=== PATIENT | female | born 1995 | race African-American/Black ===

== ENCOUNTER 2024-12-03 15:34 | Inpatient (IN) | payer OTHER, SELFPAY ==
[~2024-12-03] VITALS: Ht 165.1 cm; Wt 50.0 kg
[2024-12-03 15:48] VITALS: PULSE 191; RESP 20; O2SAT 99
--- NOTE | 2024-12-03 15:51 | ECG ---
[facility] Test Date: 2024-12-03 Test Time: 15:41:23 Pat Name: RAISA VAZQUEZ Department: [facility] ED Patient ID: [id number] Room: Gender: F Tin Cutter: ABIGAIL : 1995 Requested By: RAYA SIMMONS Order Number: [id number] Reading MD: Lukas Rossi Measurements Intervals [place] Rate: 171 P: 0 VA: 0 QRS: -11 QRSD: 84 T: 52 QT: 268 QTc: 452 Interpretive Statements Sinus tachycardia RSR' in V1 or V2, right VCD or RVH Electronically Signed On 12-03-2024 17:03:13 PDT by Lukas Rossi Please click the below link to view image of tracing.
[2024-12-03] MEDS: SODIUM CHLORIDE 0.9% 500 ML IV ONE (15:55)
[2024-12-03] MEDS: ADENOSINE 6 MG/2 ML INJ IV ONE ×2 (15:56→16:07)
--- NOTE | 2024-12-03 16:15 | ED.PDOC ---
HPI Comments This is a 29-year-old female with no significant past medical history came to the hospital due to palpitation 30 minutes before coming to the hospital. Per patient, she was driving while she suddenly developed palpitation. She also reporting of mild shortness of breaths and nausea. She denies fever, chest pain, headache, blurry vision, or any bowel/bladder habit changes. Upon ER arrival, EKGs SVT with no significant ST or T-wave changes with heart rate at 170s. Patient was given 6 mg of adenosine, subsequently rhythm converted to sinus rhythm. Surgical history: Hysterectomy (due to severe bleeding) Home meds: Does not take any medicine Social history: Denies smoking, or any other drug use Chief Complaint: Palpitations Time Seen by MD: 15:37 Reviewed Notes: Nurses Notes Allergies: Coded Allergies: NO KNOWN ALLERGIES (Unverified , 12/03/24) Information Source: Patient Past Medical History PAST MEDICAL HISTORY: Denies Surgical History: Denies all surgeries ANSWERING SERVICE AGENT History: No Pertinent ANSWERING SERVICE AGENT History Constitutional: denies: chills, diaphoresis, fatigue, fever, malaise, sweats, weakness, others EENTM: denies: blurred vision, double vision, ear bleeding, ear discharge, ear drainage, ear pain, ear ringing, eye pain, eye redness, hearing loss, mouth pain, mouth swelling, nasal discharge, nose bleeding, nose congestion, nose pain, photophobia, tearing, throat pain, throat swelling, voice changes, others Respiratory: denies: cough, hemoptysis, orthopnea, SOB at rest, shortness of breath, SOB with excertion, stridor, wheezing, others Cardiovascular: reports: palpitations; denies: chest pain, dizzy spells, diaphoresis, Dyspnea on exertion, edema, irregular heart beat, left arm pain, lightheadedness, PND, syncope, others Gastrointestinal: reports: nausea; denies: abdomen distended, abdominal pain, blood streaked bowels, constipated, diarrhea, dysphagia, difficulty swallowing, hematemesis, melena, poor appetite, poor fluid intake, rectal bleeding, rectal pain, vomiting, others Genitourinary: denies: abnormal vagina bleeding, burning, dyspareunia, dysuria, flank pain, frequency, hematuria, incontinence, pain, , vagina discharge, urgency, others Musculoskeletal: denies: back pain, gout, joint pain, joint swelling, muscle pain, muscle stiffness, neck pain, others Integumetry: denies: bruises, change in color, change in hair/nails, dryness, laceration, lesions, lumps, rash, wounds, others Allergic/Immunocompromised: denies: Difficulty Healing, Frequent Infections, Hives, Itching, others Hematologic/Lymphatic: denies: anemia, blood clots, easy bleeding, easy bruising, swollen glands, others Endocrine: denies: excessive hunger, excessive sweating, excessive thirst, excessive urination, flushing, intolerance to cold, intolerance to heat, u nexplained weight gain, unexplained weight loss, others Psychiatric: denies: anxiety, bipolar disorder, depression, hopeless, panic disorder, schizophrenia, sleepless, suicidal, others Physical Exam General Appearance: No Apparent Distress, Normal HEENT: Normal ENT Inspection, Pharynx Normal, TMs Normal Neck: Full Range of Motion, Non-Tender, Normal, Normal Inspection Respiratory: Chest Non-Tender, Lungs Clear, No Accessory Muscle Use, No Respiratory Distress, Normal Breath Sounds Cardiovascular: No Edema, No JVD, No Murmur, No Gallop, Normal Peripheral Pulses, Regular Rate/Rhythm Breast Exam: Deferred Gastrointestinal: No Organomegaly, Non Tender, No Pulsatile Mass, Normal Bowel Sounds, Soft Genitalia: Deferred Pelvic: Deferred Rectal: Deferred Extremities: No calf tenderness, Normal capillary refill, Normal inspection, Normal range of motion, Non-tender, No pedal edema Musculoskeletal : Apperance: Normal Neurologic: Alert, bread wrapper operator II-XII nml as Tested, No Motor Deficits, Normal Affect, Normal Mood, No Sensory Deficits Cerebellar Function: Normal Reflexes: Normal Skin: Dry, Normal Color, Warm Lymphatic: No Adenopathy EKG EKG : Comments SVT with heart rate at 170, no significant ST or T-wave changes Was a procedure done? Was a procedure done?: No CP Differential Dx Differential Diagnosis: Angina, Other (SVT) X-Ray, Labs, Meds, VS Vital Signs Date Time Temp Pulse Resp B/P (MAP) Pulse Ox O2 Delivery O2 Flow Rate FiO2 12/03/24 16:03 110 12/03/24 15:41 171 12/03/24 15:40 176 18 145/90 100 Lab Test 12/03/24 16:42 Range/Units White Blood Count 2.8 L 4.4-10.8 10^3/uL Red Blood Count 4.58 4.0-5.20 10^6/uL Hemoglobin 14.8 12.2-16.2 g/dL Hematocrit 43.4 36.0-46.0 % Mean Corpuscular Volume 94.9 80.0-100.0 fL Mean Corpuscular Hemoglobin 32.4 H 28.0-32.0 pg Mean Corpuscular Hemoglobin Concent 34.1 32.0-36.0 g/dL Red Cell Distribution Width 12.8 11.8-14.3 % Platelet Count 317 140-450 10^3/uL Mean Platelet Volume 8.1 6.9-10.8 fL Neutrophils (%) (Auto) 54.3 37.0-80.0 % Lymphocytes (%) (Auto) 34.9 10.0-50.0 % Monocytes (%) (Auto) 9.1 0.0-12.0 % Eosinophils (%) (Auto) 0.9 0.0-7.0 % Basophils (%) (Auto) 0.8 0.0-2.0 % Neutrophils # (Auto) 1.5 L 1.6-8.6 10 ^3/uL Lymphocytes # (Auto) 1.0 0.4-5.4 10 ^3/uL Monocytes # (Auto) 0.3 0-1.3 10 ^3/uL Eosinophils # (Auto) 0 0-0.8 10 ^3/uL Basophils # (Auto) 0 0-0.2 10 ^3/uL Nucleated Red Blood Cells 0.1 % Sodium Level Pending Potassium Level Pending Chloride Level Pending Carbon Dioxide Level Pending Anion Gap Pending Blood Urea Nitrogen Pending Creatinine Pending Glomerular Filtration Rate Calc Pending BUN/Creatinine Ratio Pending Serum Glucose Pending Calcium Level Pending Total Bilirubin Pending Aspartate Amino Transferase (AST) Pending Alanine Aminotransferase (ALT) Pending Alkaline Phosphatase Pending Troponin I High Sensitivity Pending Total Protein Pending Albumin Pending Thyroid Stimulating Hormone (TSH) Pending Plasma/Serum Blood Alcohol Pending Current Medications Medications (Trade) Dose Ordered Sig/Luis Route Start Time Stop Time Status Last Admin Sodium Chloride 500 ml @ 500 mls/hr Q1H ONCE IV 12/03/24 15:45 12/03/24 16:44 DC 12/03/24 15:55 Adenosine (Adenosine) 6 mg ONCE ONCE IV 12/03/24 16:15 12/03/24 16:16 DC 12/03/24 15:56 Time of 1ST Reevaluation: 17:09 Reevaluation 1ST: Improved Patient Education/Counseling: Diagnosis, Treatment, Prognosis, Need For Follow Up Family Education/Counseling: No Family Present Comments Patient came to the hospital due to palpitation. EKGs shows SVT with a heart rate at 170s Blood patient was normal. Due to SVT, vagal maneuver performed but rhythm did not provided. The patient was given 6 mg of adenosine, rhythm converted to sinus rhythm. Patient was given metoprolol 25 mg Patient will be admitted in hospital for further management and workup. SEPSIS Sepsis Screen Physician Orders Electrocardigram (12/03/24 15:49) Electrocardigram (12/03/24 16:49) Comprehensive Metabolic Panel (12/03/24 15:40) Drug Screen (12/03/24 15:40) Blood Alcohol (12/03/24 15:40) Thyroid Stimulating Hormone (12/03/24 15:40) Troponin-I Hs (12/03/24 15:40) Vital Signs Date Time Temp Pulse Resp B/P (MAP) Pulse Ox O2 Delivery O2 Flow Rate FiO2 12/03/24 16:03 110 12/03/24 15:41 171 12/03/24 15:40 176 18 145/90 100 Laboratory Tests Test 12/03/24 16:42 White Blood Count 2.8 10^3/uL (4.4-10.8) L Medications Medications Dose Ordered Sig/Luis Route Start Time Stop Time Status Last Admin Dose Admin Adenosine 6 mg ONCE ONCE IV 12/03/24 16:15 12/03/24 16:16 DC 12/03/24 15:56 Sodium Chloride 500 ml @ 500 mls/hr Q1H ONCE IV 12/03/24 15:45 12/03/24 16:44 DC 12/03/24 15:55 Departure 1 Departure Time of Disposition: 17:11 Impression: Primary Impression: Supraventricular tachycardia Disposition: 09 ADMITTED INPATIENT Admit to: Tele Condition: Guarded Critical Care Note Critical Care Time?: Yes (55 min-critical care time only) Stability Stability form required: Yes Heart Score Heart Score: Heart Score Response (Comments) Value History N/A 0 EKG Normal 0 Age <45 0 Risk Factors No known risk factors 0 Troponin N/A 0 Total 0 RAYA SIMMONS Dec 03, 2024 16:15
[2024-12-03 16:51] LABS: Hematocrit 43.4 % (36.0-46.0); Mean Corpuscular Volume 94.9 fL (80.0-100.0)
[2024-12-03 16:57] LABS: Hemoglobin 14.8 g/dL (12.2-16.2); Mean Corpuscular Hemoglobin 32.4 pg (28.0-32.0); Nucleated Red Blood Cells % 0.1 %
--- NOTE | 2024-12-03 17:05 | ECG ---
[facility] Test Date: 2024-12-03 Test Time: 16:03:21 Pat Name: RAISA VAZQUEZ Department: Room: [address] [place] [address] Gender: F Safety And Security Officer: : 1995 Requested By: RAYA SIMMONS Order Number: [id number] Reading MD: Lukas Rossi Measurements Intervals [place] Rate: 110 P: 56 MA: 141 QRS: 8 QRSD: 96 T: 39 QT: 330 QTc: 447 Interpretive Statements Sinus tachycardia Electronically Signed On 12-04-2024 16:05:27 PDT by Lukas Rossi Please click the below link to view image of tracing.
[2024-12-03 17:08] LABS: Alanine Aminotransferase 20 U/L (7-40); Albumin 4.7 g/dL (3.2-4.8); Alkaline Phosphatase 66 U/L (46-116); Anion Gap 9 (5-15); BUN/Creatinine Ratio 16.4 (10.0-20.0); Blood Urea Nitrogen 12 mg/dL (9-23); Calcium 9.5 mg/dL (8.7-10.4); Carbon Dioxide 24 mmol/L (20-31); Glucose 88 mg/dL (74-106); Potassium 4.2 mmol/L (3.5-5.1); Sodium 144 mmol/L (136-145); Total Protein 7.7 g/dL (5.7-8.2)
[2024-12-03 17:09] LABS: Bilirubin, Total 0.8 mg/dL (0.2-1.0)
[2024-12-03 17:10] LABS: Chloride 111 mmol/L (98-107)
[2024-12-03] MEDS: METOPROLOL TARTRATE 25 MG TAB PO ONE (17:58)
[2024-12-03 19:30] VITALS: PULSE 80; O2SAT 98
[2024-12-03] MEDS ORDERED: ONDANSETRON HCL 4 MG/2 ML VIAL IV PRN (19:30)
[2024-12-03] MEDS ORDERED: MORPHINE SULFATE INJ 2 MG/ml SYRG IV PRN (19:30)
[2024-12-03] MEDS ORDERED: NITROGLYCERIN 0.4 MG SL TAB SL PRN (19:30)
[2024-12-03] MEDS ORDERED: TEMAZEPAM 15 MG CAP PO PRN (19:30)
[2024-12-03] MEDS ORDERED: ACETAMINOPHEN 325 MG TAB PO PRN (19:30)
--- NOTE | 2024-12-03 20:12 | DVH ---
CHEST RADIOGRAPH Indication: Shortness breath Technique: 1 view Comparison: None FINDINGS: Lines and Tubes: External leads and defibrillator pads. Lungs/Pleura: No focal consolidation, pleural effusion or pneumothorax. Cardiomediastinum: Unremarkable. Other: No acute osseous abnormality. IMPRESSION: 1. No acute cardiopulmonary abnormality.
[2024-12-03] MEDS: METOPROLOL TARTRATE 25 MG TAB PO SCH (22:02)
--- NOTE | 2024-12-03 22:38 | DVHHP2 ---
History of Present Illness Reason for Visit: Palpitations History of Present Illness 29-year-old female presents for evaluation of palpitations. Patient reports developing palpitations while driving. She states having similar episodes in the past which would subside on their own. She drove herself to the emergency department and she was noted to be in SVT on arrival. She converted to normal sinus rhythm after one dose of adenosine 6 mg. Past Medical History Denies Past Surgical History Denies Family History Noncontributory Smoke: No ALCOHOL: none Drugs: None Lives: with Family Review of Systems Review of Systems Review of systems are currently negative otherwise addressed in HPI. Allergies: Coded Allergies: NO KNOWN ALLERGIES (Unverified , 12/03/24) Medications Current Medications Medications Dose Ordered Sig/Luis Route Start Time Stop Time Status Last Admin Dose Admin Metoprolol Tartrate 12.5 mg BID PO 12/03/24 22:00 12/03/24 22:02 12.5 MG Temazepam 15 mg QHSP PRN PO 12/03/24 19:30 Ondansetron HCl 4 mg Q4HP PRN IV 12/03/24 19:30 Acetaminophen 650 mg Q6HP PRN PO 12/03/24 19:30 Nitroglycerin 0.4 mg Q5MINP PRN SL 12/03/24 19:30 Morphine Sulfate 2 mg Q30M PRN IV 12/03/24 19:30 Exam Vital Signs Vital Signs Date Time Temp Pulse Resp B/P (MAP) Pulse Ox O2 Delivery O2 Flow Rate FiO2 12/03/24 22:02 84 119/70 12/03/24 21:00 23 97 12/03/24 19:30 98.7 98.7 12/03/24 15:48 Room Air* 0 21 Exam Gen: 29-year-old female in mild distress Skin: Warm, dry, normal color and texture, no rash. HEENT: Normocephalic atraumatic, mucous membranes moist and pink. Neck: Cervical and supraclavicular nodes normal without enlargement, trachea is midline, thyroid gland is normal without masses. Pulmonary: Clear to auscultation and percussion bilaterally. Cardiac: Regular rate and rhythm. No murmur Abdomen: Soft, nontender, nondistended, bowel sounds present all 4 quadrants, no guarding, no rigidity, no organomegaly. Extremities: No cyanosis, clubbing, no edema Neuro: Cranial nerves II through XII grossly intact, normal affect and speech, no focal motor deficits. Labs/Xrays ORDERING PHYSICIAN: JOSEPH COLON PROCEDURE(s): CXR1 - CHEST XRAY 1 VIEW REASON: Shortness breath ORDER NUMBER(s): [id number], ACCESSION NUMBER(s): [id number] CHEST RADIOGRAPH Indication: Shortness breath Technique: 1 view Comparison: None FINDINGS: Lines and Tubes: External leads and defibrillator pads. Lungs/Pleura: No focal consolidation, pleural effusion or pneumothorax. Cardiomediastinum: Unremarkable. Other: No acute osseous abnormality. IMPRESSION: 1. No acute cardiopulmonary abnormality. Labs Test 12/03/24 21:17 12/03/24 16:42 Range/Units White Blood Count 2.8 L 4.4-10.8 10^3/uL Red Blood Count 4.58 4.0-5.20 10^6/uL Hemoglobin 14.8 12.2-16.2 g/dL Hematocrit 43.4 36.0-46.0 % Mean Corpuscular Volume 94.9 80.0-100.0 fL Mean Corpuscular Hemoglobin 32.4 H 28.0-32.0 pg Mean Corpuscular Hemoglobin Concent 34.1 32.0-36.0 g/dL Red Cell Distribution Width 12.8 11.8-14.3 % Platelet Count 317 140-450 10^3/uL Mean Platelet Volume 8.1 6.9-10.8 fL Neutrophils (%) (Auto) 54.3 37.0-80.0 % Lymphocytes (%) (Auto) 34.9 10.0-50.0 % Monocytes (%) (Auto) 9.1 0.0-12.0 % Eosinophils (%) (Auto) 0.9 0.0-7.0 % Basophils (%) (Auto) 0.8 0.0-2.0 % Neutrophils # (Auto) 1.5 L 1.6-8.6 10 ^3/uL Lymphocytes # (Auto) 1.0 0.4-5.4 10 ^3/uL Monocytes # (Auto) 0.3 0-1.3 10 ^3/uL Eosinophils # (Auto) 0 0-0.8 10 ^3/uL Basophils # (Auto) 0 0-0.2 10 ^3/uL Nucleated Red Blood Cells 0.1 % Sodium Level 144 136-145 mmol/L Potassium Level 4.2 3.5-5.1 mmol/L Chloride Level 111 H 98-107 mmol/L Carbon Dioxide Level 24 20-31 mmol/L Anion Gap 9 5-15 Blood Urea Nitrogen 12 9-23 mg/dL Creatinine 0.73 0.550-1.02 mg/dL Glomerular Filtration Rate Calc 116 >90 mL/min BUN/Creatinine Ratio 16.4 10.0-20.0 Serum Glucose 88 74-106 mg/dL Calcium Level 9.5 8.7-10.4 mg/dL Total Bilirubin 0.8 0.2-1.0 mg/dL Aspartate Amino Transferase (AST) 22 13-40 U/L Alanine Aminotransferase (ALT) 20 7-40 U/L Alkaline Phosphatase 66 46-116 U/L Troponin I High Sensitivity 5 </=34 ng/L Total Protein 7.7 5.7-8.2 g/dL Albumin 4.7 3.2-4.8 g/dL Thyroid Stimulating Hormone (TSH) 1.31 0.55-4.78 uIU/mL Plasma/Serum Blood Alcohol < 3.0 <10 mg/dL SEPSIS Sepsis Screen Date sepsis recognized/suspect: Dec 03, 2024 Time Sepsis recognized/suspect: 8 Recent Procedure: No On Antibiotic Therapy: No Respiratory Rate >20: No Heart Rate >90: Yes Temp<36 C (96.8 F) or >38.3 C: No SBP <90 or MAP <65 mmHG: No New Acute Mental Status Change: No Is the patient on CPAP, BIPAP,: No Physician Orders Electrocardigram (12/03/24 15:49) Electrocardigram (12/03/24 16:49) Metoprolol Tartrate Tablet (Lopressor Ta (12/03/24 22:00) * Cardiology Consult (12/03/24 19:27) Chest Xray 1 View (12/03/24 19:27) Basic Metabolic Panel (12/04/24 04:00) Drug Screen (12/03/24 19:27) Admit (12/03/24 19:27) Temazepam (Restoril) (12/03/24 19:30) Ondansetron Hcl (Zofran) (12/03/24 19:30) Echo 2d Mode Cardiac Dop (12/03/24:27) Condition: Fair (12/03/24:) Acetaminophen Tablet (Tylenol Tablet) (12/03/24 19:30) Bedrest With Bathroom Privileg (12/03/24 19:27) Nitroglycerin Sublingual (Ntrostat Subli (12/03/24:) Morphine Sulfate Injection (12/03/24:30) Stat Ekg For Chest Pain (12/03/24:) Notify Of Changes From Base (12/03/24:) Pig Machine Supervisor For 24 Hours (12/03/24:) Emergency Dysrhythmia Protocol (12/03/24:) Rhythm Strips Once Every Shift (12/03/24:) Oxygen By Nasal Cannula (12/03/24:) Regular Diet (12/04/24 Breakfast) Vital Signs Date Time Temp Pulse Resp B/P (MAP) Pulse Ox O2 Delivery O2 Flow Rate FiO2 12/03/24 22:02 84 119/70 12/03/24 21:00 85 23 111/72 (85) 97 12/03/24 20:00 79 12/03/24 19:30 98.7 80 16 119/71 (87) 98 98.7 12/03/24 17:58 116 131/82 12/03/24 17:20 99.4 99.4 12/03/24 16:05 108 13 122/79 (93) 100 12/03/24 16:03 110 12/03/24 15:48 191 20 145/90 (108) 99 12/03/24 15:48 191 20 99 Room Air* 0 21 12/03/24 15:41 171 12/03/24 15:40 176 18 145/90 100 Laboratory Tests Test 12/03/24 16:42 White Blood Count 2.8 10^3/uL (4.4-10.8) L Medications Medications Dose Ordered Sig/Luis Route Start Time Stop Time Status Last Admin Dose Admin Adenosine 6 mg ONCE ONCE IV 12/03/24 16:15 12/03/24 16:16 DC 12/03/24 15:56 6 MG Metoprolol Tartrate 12.5 mg BID PO 12/03/24 22:00 12/03/24 22:02 12.5 MG Metoprolol Tartrate 25 mg ONCE ONCE PO 12/03/24 17:15 12/03/24 17:25 DC 12/03/24 17:58 25 MG Sodium Chloride 500 ml @ 500 mls/hr Q1H ONCE IV 12/03/24 15:45 12/03/24 16:44 DC 12/03/24 15:55 500 MLS/HR Assessment/Plan Assessment/Plan Assessment Supraventricular tachycardia Palpitations Plan Admit the patient to telemetry to the hospitalist Cardiology consultation Metoprolol Echocardiogram pending Continue treatment per orders Plan discussed with: Patient My Orders Orders - JOSEPH COLON Procedure Category Date Status Time Metoprolol Tartrate PHA 12/03/24 In Process Tablet (Lopressor Ta 22:00 * Cardiology Consult CONS 12/03/24 Transmitted 19:27 Chest Xray 1 View XY 12/03/24 Resulted 19:27 Basic Metabolic Panel LAB 12/04/24 Verified 04:00 Drug Screen LAB 12/03/24 In Process 19:27 Admit ADMIT 12/03/24 Transmitted 19:27 Temazepam (Restoril) PHA 12/03/24 In Process 19:30 Ondansetron Hcl PHA 12/03/24 In Process (Zofran) 19:30 Echo 2d Mode Cardiac US 12/03/24 Logged DOP 19:27 Condition: Fair KINDRA 12/03/24 In Process 19:27 Acetaminophen Tablet PHA 12/03/24 In Process (Tylenol Tablet) 19:30 Bedrest With Bathroom KINDRA 12/03/24 In Process Privileg 19:27 Nitroglycerin PHA 12/03/24 In Process Sublingual (Ntrostat 19:30 Morphine Sulfate PHA 12/03/24 In Process Injection 19:30 Stat Ekg For Chest KINDRA 12/03/24 In Process Pain 19:27 Notify Of Changes KINDAR 12/03/24 In Process From Base 19:27 Pig Machine Supervisor For [facility] 12/03/24 In Process 24 Hours 19:27 Emergency Dysrhythmia [facility] 12/03/24 In Process Protocol 19:27 Rhythm Strips Once [facility] 12/03/24 In Process Every Shift 19:27 Oxygen By Nasal RT 12/03/24 Transmitted Cannula 19:27 Regular Diet DIET 12/04/24 Transmitted Breakfast Date of Service: Dec 03, 2024 Billing Provider: JOSEPH COLON Common Visit Codes: [id number] INP/OBS CARE (HIGH) JOSEPH COLON Dec 03, 2024 22:38
[2024-12-03 22:39] LABS: Amphetamine Screen, Urine Neg (NEGATIVE); Barbiturate Scree,Urine Neg (NEGATIVE); Benzodiazephine Screen, Urine Neg (NEGATIVE); Cannabinoid Screen, Urine Neg (NEGATIVE); Cocaine Screen, Urine Neg (NEGATIVE); Opiate Scree,Urine Neg (NEGATIVE); Phencyclidine Screen, Urine Neg (NEGATIVE)
[2024-12-04] VITALS (7 sets, daily range): BP systolic 98–117; BP diastolic 55–76; PULSE 63–97; RESP 16–18; TEMP 98.1–98.6; O2SAT 97–99
--- NOTE | 2024-12-04 00:23 | DVHINCON2 ---
Date of service: Dec 03, 2024 Referring Physician Jean Marie Reason for Consultation SVT History of Present Illness This is a 29-year-old female without any significant past medical history presented to the ED with complaints of heart palpitations that began 30 minutes [employer]. Per patient, she was driving while she suddenly developed heart palpitations. Patient is also reporting mild shortness of breaths and nausea. Upon ED arrival, EKGs showed SVT with heart rate in the 170s. Patient received 6 mg of adenosine, subsequently rhythm converted to sinus rhythm. Patient was given metoprolol 25 mg. Troponin is negative. UDS is negative. Chest x-ray shows NAD. Patient was admitted to the hospital. I am asked to consult on this patient. Allergies: Coded Allergies: NO KNOWN ALLERGIES (Unverified , 12/03/24) Current Medications Current Medications Medications (Trade) Dose Ordered Sig/Luis Route PRN Reason Start Time Stop Time Status Last Admin Metoprolol Tartrate (Lopressor Tablet) 12.5 mg BID PO 12/03/24 22:00 12/03/24 22:02 Temazepam (Restoril) 15 mg QHSP PRN PO FOR INSOMNIA 12/03/24 19:30 Ondansetron HCl (Zofran) 4 mg Q4HP PRN IV NAUSEA / VOMITING 12/03/24 19:30 Acetaminophen (Tylenol Tablet) 650 mg Q6HP PRN PO PAIN SCALE 1-3 OR TEMP>100.4 12/03/24 19:30 Nitroglycerin (Ntrostat Sublingual) 0.4 mg Q5MINP PRN SL FOR CHEST PAIN 12/03/24 19:30 Morphine Sulfate 2 mg Q30M PRN IV FOR CHEST PAIN 12/03/24 19:30 Review of Systems Constitutional: denies: chills, diaphoresis, fatigue, fever, malaise, sweats, weakness, others EENTM: denies: blurred vision, double vision, ear bleeding, ear discharge, ear drainage, ear pain, ear ringing, eye pain, eye redness, hearing loss, mouth pain, mouth swelling, nasal discharge, nose bleeding, nose congestion, nose pain, photophobia, tearing, throat pain, throat swelling, voice changes, others Respiratory: denies: cough, hemoptysis, orthopnea, SOB at rest, shortness of breath, SOB with excertion, stridor, wheezing, others Cardiovascular: reports: palpitations; denies: chest pain, dizzy spells, diapho resis, Dyspnea on exertion, edema, irregular heart beat, left arm pain, lightheadedness, PND, syncope, others Gastrointestinal: reports: nausea; denies: abdomen distended, abdominal pain, blood streaked bowels, constipated, diarrhea, dysphagia, difficulty swallowing, hematemesis, melena, poor appetite, poor fluid intake, rectal bleeding, rectal pain, vomiting, others Genitourinary: denies: abnormal vagina bleeding, burning, dyspareunia, dysuria, flank pain, frequency, hematuria, incontinence, pain, , vagina discharge, urgency, others Musculoskeletal: denies: back pain, gout, joint pain, joint swelling, muscle pain, muscle stiffness, neck pain, others Integumetry: denies: bruises, change in color, change in hair/nails, dryness, laceration, lesions, lumps, rash, wounds, others Allergic/Immunocompromised: denies: Difficulty Healing, Frequent Infections, Hives, Itching, others Hematologic/Lymphatic: denies: anemia, blood clots, easy bleeding, easy bruising, swollen glands, others Endocrine: denies: excessive hunger, excessive sweating, excessive thirst, excessive urination, flushing, intolerance to cold, intolerance to heat, unexplained weight gain, unexplained weight loss, others Psychiatric: denies: anxiety, bipolar disorder, depression, hopeless, panic disorder, schizophrenia, sleepless, suicidal, others Vital Signs Vital Signs Date Time Temp Pulse Resp B/P (MAP) Pulse Ox O2 Delivery O2 Flow Rate FiO2 12/03/24 22:02 84 119/70 12/03/24 21:00 23 97 12/03/24 19:30 98.7 98.7 12/03/24 15:48 Room Air* 0 21 Physical Exam GENERAL: Alert and oriented x 3. No acute distress. EYES: PERRL, EOMI. Anicteric. HENT: Moist mucous membranes. LUNGS: Clear to auscultation bilaterally. CARDIOVASCULAR: Regular rate and rhythm. ABDOMEN: Soft, nontender and nondistended. EXTREMITIES: No edema. NEUROLOGIC: No focal neurological deficits. SKIN: Warm, dry. Labs/Diagnostic Data Labs Test 12/03/24 21:17 12/03/24 16:42 Range/Units Urine Opiates Screen Neg NEGATIVE Urine Fentanyl Screen Neg NEGATIVE Urine Barbiturates Screen Neg NEGATIVE Urine Phencyclidine Screen Neg NEGATIVE Urine Amphetamines Screen Neg NEGATIVE Urine Benzodiazepines Screen Neg NEGATIVE Urine Cocaine Screen Neg NEGATIVE Urine Cannabinoids Screen Neg NEGATIVE White Blood Count 2.8 L 4.4-10.8 10^3/uL Red Blood Count 4.58 4.0-5.20 10^6/uL Hemoglobin 14.8 12.2-16.2 g/dL Hematocrit 43.4 36.0-46.0 % Mean Corpuscular Volume 94.9 80.0-100.0 fL Mean Corpuscular Hemoglobin 32.4 H 28.0-32.0 pg Mean Corpuscular Hemoglobin Concent 34.1 32.0-36.0 g/dL Red Cell Distribution Width 12.8 11.8-14.3 % Platelet Count 317 140-450 10^3/uL Mean Platelet Volume 8.1 6.9-10.8 fL Neutrophils (%) (Auto) 54.3 37.0-80.0 % Lymphocytes (%) (Auto) 34.9 10.0-50.0 % Monocytes (%) (Auto) 9.1 0.0-12.0 % Eosinophils (%) (Auto) 0.9 0.0-7.0 % Basophils (%) (Auto) 0.8 0.0-2.0 % Neutrophils # (Auto) 1.5 L 1.6-8.6 10 ^3/uL Lymphocytes # (Auto) 1.0 0.4-5.4 10 ^3/uL Monocytes # (Auto) 0.3 0-1.3 10 ^3/uL Eosinophils # (Auto) 0 0-0.8 10 ^3/uL Basophils # (Auto) 0 0-0.2 10 ^3/uL Nucleated Red Blood Cells 0.1 % Sodium Level 144 136-145 mmol/L Potassium Level 4.2 3.5-5.1 mmol/L Chloride Level 111 H 98-107 mmol/L Carbon Dioxide Level 24 20-31 mmol/L Anion Gap 9 5-15 Blood Urea Nitrogen 12 9-23 mg/dL Creatinine 0.73 0.550-1.02 mg/dL Glomerular Filtration Rate Calc 116 >90 mL/min BUN/Creatinine Ratio 16.4 10.0-20.0 Serum Glucose 88 74-106 mg/dL Calcium Level 9.5 8.7-10.4 mg/dL Total Bilirubin 0.8 0.2-1.0 mg/dL Aspartate Amino Transferase (AST) 22 13-40 U/L Alanine Aminotransferase (ALT) 20 7-40 U/L Alkaline Phosphatase 66 46-116 U/L Troponin I High Sensitivity 5 </=34 ng/L Total Protein 7.7 5.7-8.2 g/dL Albumin 4.7 3.2-4.8 g/dL Thyroid Stimulating Hormone (TSH) 1.31 0.55-4.78 uIU/mL Plasma/Serum Blood Alcohol < 3.0 <10 mg/dL Assessment Supraventricular tachycardia. Palpitations. Plan/Recommendation I agree with your ongoing assessment and care of plan. Telemetry reviewed. Echocardiogram. Metoprolol. Morphine for pain management. Nitro SL. Additional plan as per the hospital course. A total of 45 minutes was spent reviewing the patient record, examining the patient, making a diagnostic and therapeutic plan, discussing this plan with medical personnel, following up on diagnostic studies and following the patient for clinical stability excluding any and all procedures. At least 50% of this time was spent in direct, [id number] contact. Plan discussed with: Patient SAVITA VELÁZQUEZ MD Dec 03, 2024 23:31
[2024-12-04] MEDS ORDERED: ALBUAER3 IN (04:30)
[2024-12-04 06:18] LABS: Anion Gap 10 (5-15); Carbon Dioxide 23 mmol/L (20-31); Potassium 4.0 mmol/L (3.5-5.1); Sodium 140 mmol/L (136-145)
[2024-12-04 06:19] LABS: Calcium 9.2 mg/dL (8.7-10.4)
[2024-12-04 06:24] LABS: BUN/Creatinine Ratio 10.1 (10.0-20.0); Glucose 88 mg/dL (74-106)
[2024-12-04 06:29] LABS: Blood Urea Nitrogen 7 mg/dL (9-23); Chloride 107 mmol/L (98-107)
[2024-12-04] MEDS ORDERED: MET25T PO (17:07)
--- NOTE | 2024-12-04 17:09 | DVHDS2 ---
Discharge Summary Date of Admission Dec 03, 2024 at 19:27 Date of Discharge: Dec 04, 2024 Labs/Diagnostic Data: Laboratory Results Test 12/04/24 05:08 12/03/24 21:17 12/03/24 16:42 Sodium Level 140 mmol/L (136-145) Potassium Level 4.0 mmol/L (3.5-5.1) Chloride Level 107 mmol/L (98-107) Carbon Dioxide Level 23 mmol/L (20-31) Anion Gap 10 (5-15) Blood Urea Nitrogen 7 mg/dL (9-23) Creatinine 0.69 mg/dL (0.550-1.02) Glomerular Filtration Rate Calc 122 mL/min (>90) BUN/Creatinine Ratio 10.1 (10.0-20.0) Serum Glucose 88 mg/dL (74-106) Calcium Level 9.2 mg/dL (8.7-10.4) Urine Opiates Screen Neg (NEGATIVE) Urine Fentanyl Screen Neg (NEGATIVE) Urine Barbiturates Screen Neg (NEGATIVE) Urine Phencyclidine Screen Neg (NEGATIVE) Urine Amphetamines Screen Neg (NEGATIVE) Urine Benzodiazepines Screen Neg (NEGATIVE) Urine Cocaine Screen Neg (NEGATIVE) Urine Cannabinoids Screen Neg (NEGATIVE) White Blood Count 2.8 10^3/uL (4.4-10.8) Red Blood Count 4.58 10^6/uL (4.0-5.20) Hemoglobin 14.8 g/dL (12.2-16.2) Hematocrit 43.4 % (36.0-46.0) Mean Corpuscular Volume 94.9 fL (80.0-100.0) Mean Corpuscular Hemoglobin 32.4 pg (28.0-32.0) Mean Corpuscular Hemoglobin Concent 34.1 g/dL (32.0-36.0) Red Cell Distribution Width 12.8 % (11.8-14.3) Platelet Count 317 10^3/uL (140-450) Mean Platelet Volume 8.1 fL (6.9-10.8) Neutrophils (%) (Auto) 54.3 % (37.0-80.0) Lymphocytes (%) (Auto) 34.9 % (10.0-50.0) Monocytes (%) (Auto) 9.1 % (0.0-12.0) Eosinophils (%) (Auto) 0.9 % (0.0-7.0) Basophils (%) (Auto) 0.8 % (0.0-2.0) Neutrophils # (Auto) 1.5 10 ^3/uL (1.6-8.6) Lymphocytes # (Auto) 1.0 10 ^3/uL (0.4-5.4) Monocytes # (Auto) 0.3 10 ^3/uL (0-1.3) Eosinophils # (Auto) 0 10 ^3/uL (0-0.8) Basophils # (Auto) 0 10 ^3/uL (0-0.2) Nucleated Red Blood Cells 0.1 % Total Bilirubin 0.8 mg/dL (0.2-1.0) Aspartate Amino Transferase (AST) 22 U/L (13-40) Alanine Aminotransferase (ALT) 20 U/L (7-40) Alkaline Phosphatase 66 U/L (46-116) Troponin I High Sensitivity 5 ng/L (</=34) Total Protein 7.7 g/dL (5.7-8.2) Albumin 4.7 g/dL (3.2-4.8) Thyroid Stimulating Hormone (TSH) 1.31 uIU/mL (0.55-4.78) Plasma/Serum Blood Alcohol < 3.0 mg/dL (<10) Other Laboratory Tests 12/04/24 05:08 12/03/24 16:42 Brief Hx & Hospital Course: 29-year-old female presents for evaluation of palpitations. Patient reports developing palpitations while driving. She states having similar episodes in the past which would subside on their own. She drove herself to the emergency department and she was noted to be in SVT on arrival. She converted to normal sinus rhythm after one dose of adenosine 6 mg. 12/04: Patient exam is normal, appears healthy. does not endorse any drug abuse, no needle tracking carr. Patient does not hydrate well enough possible source of SVT. Echo pending read, patient patient asking for discharge. Patient has been sinus rhythm since 1 episode of SVT requiring adenosine. Patient is now on beta-lisa. Patient has been stable. Vital signs stable.UDS negative, TSH normal, no alcohol serum, CMP normal. Patient is stable for discharge with plan below. diagnosis: Supraventricular tachycardia, likely intravascular volume depletion as below. Palpitations , resolved Intravascular volume depletion Dehydration Plan: Continue beta blockerMetoprolol Lopressor 12.5 mg b.i.d. hydrate well Avoid coffee / caffeine / energy drinks Follow up with PCP to review discharge and to review echocardiogram Condition at Discharge: Fair Final Diagnosis/Problems List Supraventricular tachycardia, likely intravascular volume depletion as below. Palpitations , resolved Intravascular volume depletion Dehydration Discharge Disposition: Home Discharge Instruct/Medications Diet: Regular Activity: No Restrictions, As Tolerated Follow Up/Referral: See below Medications: See below Scheduled Metoprolol Tartrate (Lopressor), 12.5 MG PO Q12HR Miscellaneous Medications Albuterol Sulfate (Ventolin Mdi), 90 MCG IN, (Reported) Discharge Statement: "Patient was advised to return to the ER or call 911 if any headaches, dizziness, shortness of breath, chest pain, abdominal pain, bleeding, fevers, or worsening of medical condition. Patient was counseled about treatment plan, medications, possible side effects, patientverbalized understanding. All questions were answered to the best of my ability. This discharge took greater then 30 minutes in planning, reviewing documentation, counseling the patient, and discussing with other team members." Date of Service: Dec 04, 2024 Billing Provider: ANDREW BLANCO MD Common Visit Codes: 96713-YLR/OBS DISCH DAY >30min ANDREW BLANCO MD Dec 04, 2024 17:09
--- NOTE | 2024-12-04 22:25 | DVHPN2 ---
Progress Note - Dictate Date Seen: Dec 04, 2024 Medical Necessity Reason Pt with a Central, PICC or Fol: No Subjective Patient was seen and evaluated in follow up. No overnight events. Patient reports her heart palpitations have resolved. Echocardiogram is pending. Telemetry reviewed. vital signs Vital Sign Date Time Temp Pulse Resp B/P (MAP) Pulse Ox O2 Delivery O2 Flow Rate FiO2 12/04/24 09:07 98.2 63 18 98/55 (69) 99 98.2 12/03/24 19:30 Room Air* 0 21 Total Intake and Output 12/03/24 12/03/24 12/04/24 15:00 23:00 07:00 Intake Total 500 ml 150 ml Balance 500 ml 150 ml medications Current Medications Medications Dose Ordered Sig/Luis Route Start Time Stop Time Status Last Admin Dose Admin Metoprolol Tartrate 12.5 mg BID PO 12/03/24 22:00 12/03/24 22:02 12.5 MG Temazepam 15 mg QHSP PRN PO 12/03/24 19:30 Ondansetron HCl 4 mg Q4HP PRN IV 12/03/24 19:30 Acetaminophen 650 mg Q6HP PRN PO 12/03/24 19:30 Nitroglycerin 0.4 mg Q5MINP PRN SL 12/03/24 19:30 Morphine Sulfate 2 mg Q30M PRN IV 12/03/24 19:30 objective GENERAL: Alert and oriented x 3. No acute distress. EYES: PERRL, EOMI. Anicteric. HENT: Moist mucous membranes. LUNGS: Clear to auscultation bilaterally. CARDIOVASCULAR: Regular rate and rhythm. ABDOMEN: Soft, nontender and nondistended. EXTREMITIES: No edema. NEUROLOGIC: No focal neurological deficits. SKIN: Warm, dry. laboratory and microbiology Laboratory Tests 12/04/24 05:08 12/03/24 16:42 Test 12/04/24 05:08 Range/Units Serum Glucose 88 74-106 mg/dL Problem List Supraventricular tachycardia. Palpitations. Assessment/Plan Continued all current supportive medical care. Echocardiogram. Nitro SL. Tylenol and Morphine for pain management. Additional plan as per the hospital course. Plan discussed with: Patient SAVITA VELÁZQUEZ MD Dec 04, 2024 11:36
--- NOTE | 2024-12-05 00:24 | DVHSR ---
APPROVED REPORT EXAM: Two-dimensional and M-mode echocardiogram with Doppler and color Doppler. Blood Pressure: 111/72 mmHg INDICATION SVT RISK FACTORS Height: 65, Weight: 110 DIMENSIONS LVDd4.3 (3.8-5.7cm)LA (2D)3.5 (1.9-4.0cm)Aortic Root (2.0-3.7cm) LVDs2.8 (2.5-4.0cm)LA (MM) (1.9-4.0cm)Aortic Cusp Exc (1.5-2.0cm) EF (%) 65.0 (55-70%)Rt. Atrium3.2 (1.9-4.0cm)Asc. Aorta cm Mitral Valve MitralMitral Stenosis E wave0.97m/sMV Mean GR.mmHg A wave0.59m/sMV Peak GR.mmHg E/A ratio1.62D MVAcm2 DECEL [id number] 1/2 [id number] IVRTmsDop MVA3.09cm2 Aortic Valve Aortic ValveAortic Stenosis V10.96m/Toni Mean GR.3mmHg V21.07m/Toni Peak GR.5mmHg LVOT Diameter1.9 (1.8-2.4cm)Doppler AVA2.54cm2 Other Information Technically limited study due to body habitus. Conclusion LV EF IS 65% NORMAL VALVES NORAML RV SIZE AND MOTION NO EFFUSION
== END 2024-12-04 18:47 | disposition home or self-care (01) | DRG 310 ==
LOC: ER 15:34 → OVERFLOW 19:27
PROVIDERS: ADMIT Student in an Organized Health Care Education/Training Program; ATTEND Student in an Organized Health Care Education/Training Program
DX: I47.10 Supraventricular tachycardia, unspecified (principal); E86.0 Dehydration; Z90.710 Acquired absence of both cervix and uterus
CPT/HCPCS: 36415; 71045; 80048; 80053; 80307; 80320; 84443; 84484; 85025; 93005; 93306; 96361; G0378; J0153